=== PATIENT | female | born 1965 | race Caucasian/White ===

== ENCOUNTER 2017-06-13 03:43 | Emergency (ER) | payer BC ==
[~2017-06-13] VITALS: Ht 170.2 cm; Wt 78.0 kg
[2017-06-13 03:44] VITALS: BP 133/78; PULSE 84; RESP 20; TEMP 98.7; O2SAT 98
[2017-06-13] MEDS ORDERED: SODIUM CHLORIDE 0.9% FLUSH 10 ML FLUSH IVF PRN (04:15)
[2017-06-13] MEDS ORDERED: traMADol HCL 50 MG TAB PO ONE ×2 (04:15→06:00)
[2017-06-13 04:42] VITALS: O2SAT 97
[2017-06-13] MEDS ORDERED: TOPA50TA7 PO (04:43)
[2017-06-13] MEDS ORDERED: HYDR-3366 PO (04:47)
[2017-06-13] MEDS ORDERED: DULO20 PO (04:47)
[2017-06-13] MEDS ORDERED: CELE50CA PO (04:47)
[2017-06-13] MEDS ORDERED: CYCL7.5T33 PO (04:47)
[2017-06-13] MEDS ORDERED: SLEEP MEDICATION (04:47)
[2017-06-13 04:48] LABS: HEMATOCRIT 38.5 % (35.0-46.0); HEMOGLOBIN 13.3 GM/DL (11.6-15.3); MEAN CELL VOLUME 95.7 FL (80.0-100.0); MEAN CORPUSCULAR HEMOGLOBIN 33.1 PG (27.0-34.0); MEAN CORPUSCULAR HGB CONC 34.5 % (32.0-36.0); MEAN PLATELET VOLUME 9.2 FL (7.0-11.0); PLATELET COUNT 212 TH/MM3 (150-450); RED BLOOD COUNT 4.02 MIL/MM3 (4.00-5.30); RED CELL DISTRIBUTION WIDTH 12.6 % (11.6-17.2); WHITE BLOOD COUNT 6.9 TH/MM3 (4.0-11.0)
[2017-06-13] MEDS ORDERED: otc cough med (04:49)
[2017-06-13] MEDS ORDERED: IBUP1TAB7 PO (04:49)
[2017-06-13 05:03] LABS: D-DIMER 0.5 MG/L FEU (0.00-0.50); PROTHROMBIN TIME - PATIENT 9.8 SEC (9.8-11.6)
[2017-06-13 05:05] LABS: ALBUMIN 3.8 GM/DL (3.4-5.0); AST (GOT) 26 U/L (15-37); BICARBONATE 21.1 MEQ/L (21.0-32.0); BLOOD UREA NITROGEN 10 MG/DL (7-18); CALCIUM 8.3 MG/DL (8.5-10.1); CHLORIDE 105 MEQ/L (98-107); CREATININE 1.03 MG/DL (0.50-1.00); GLOMERULAR FILTRATION RATE 56 ML/MIN (>89); GLUCOSE,RANDOM 108 MG/DL (74-106); MAGNESIUM 2.1 MG/DL (1.5-2.5); SODIUM (NA) 134 MEQ/L (136-145)
[2017-06-13 05:06] VITALS: BP_SYST 127; BP_SYST 131; BP_DIAS 73; BP_DIAS 74; PULSE 85; O2SAT 97
[2017-06-13 05:06] LABS: ALT (GPT) 25 U/L (10-53)
[2017-06-13 05:08] VITALS: BP 131/73; PULSE 89
[2017-06-13 05:09] LABS: ALKALINE PHOSPHATASE 106 U/L (45-117); TOTAL BILIRUBIN ADULT 0.3 MG/DL (0.2-1.0); TOTAL PROTEIN 7.3 GM/DL (6.4-8.2); TROPONIN I LESS THAN 0.02 NG/ML (0.02-0.05)
--- NOTE | 2017-06-13 05:25 | RADRPT ---
EXAM DATE/TIME: 06/13/2017 04:39 [place] COMPARISON: No previous studies available for comparison. INDICATIONS : Left sided rib/chest pain. No known injury. MEDICAL HISTORY : None. SURGICAL HISTORY : None. ENCOUNTER: Initial ACUITY: 3 days PAIN SCORE: 10/10 LOCATION: Left chest FINDINGS: A single view of the chest demonstrates the lungs to be symmetrically aerated without evidence of mas s, infiltrate or effusion. The cardiomediastinal contours are unremarkable. Osseous structures are intact. CONCLUSION: The lungs are grossly clear. Ernesto Burnett MD on June 13, 2017 at 5:22 Board Certified Radiologist. This report was verified electronically.
[2017-06-13 05:26] LABS: BANDS 5 % (0-6); LYMPHOCYTES 5 % (9-44); MONOCYTES 10 % (0-8); NEUTROPHIL # MANUAL DIFF 5.8 TH/MM3 (1.8-7.7); POLYS (SEG NEUTROPHILS) 79 % (16-70)
[2017-06-13] MEDS ORDERED: DIAZEPAM 5 MG TAB PO ONE ×2 (05:45→06:00)
[2017-06-13] MEDS ORDERED: RESP: ALBUTEROL 2.5 MG/IPRATROPIUM 0.5 MG NEB (SCH) NEB ONE (06:00)
[2017-06-13 06:17] VITALS: BP 154/95; PULSE 88; O2SAT 97
[2017-06-13] MEDS ORDERED: VENTAER INH (06:33)
[2017-06-13] MEDS ORDERED: DIAZ5 PO (06:33)
[2017-06-13] MEDS ORDERED: TRAM50 PO (06:33)
--- NOTE | 2017-06-13 06:34 | PD ---
HPI . Left chest wall pain Chief Complaint: Cold / Flu Symptoms Time Seen by Provider: 04:13 Travel History International Travel<30 days: No Contact w/Intl Traveler<30days: No Traveled to known affect area: No History of Present Illness HPI 51-year-old female complains of having cough cold type symptoms and left lateral lower chest wall pain sharp, worse with deep breath and movement, patient notes severe pain today secondary to increased coughing. Patient states she has a rattle in her chest, however denies any cough production or quantified fever. Patient has had extensive recent travel history driving to [place] and [facility]. No increased leg pain or leg swelling. [facility] Past Medical History Narrative Medical Past medical history reviewed Hypertension: Yes Tetanus Vaccination: Never Vaccinated Influenza Vaccination: No ?: Not Menopausal: Yes Tubal Ligation: Yes Past Surgical History Oral Surgery: Yes (x3) Social History Alcohol Use: Yes (occ) Tobacco Use: No Substance Use: No Allergies-Medications (Allergen,Severity, Reaction): Coded Allergies: sumatriptan (Verified Allergy, Severe, Anemia, 06/13/17) Reported Meds & Prescriptions Reported Meds & Active Scripts Active Reported [otc cough med] Ibuprofen 800 Mg Tab 800 Mg PO Q8H PRN [place] (Hydrocodone-Acetaminophen) 10-325 Mg Tab 1 Tab PO Q8HR PRN [sleep medication] Cymbalta DR (Duloxetine HCl) 20 Mg Capdr Mg PO DAILY Flexeril (Cyclobenzaprine HCl) 7.5 Mg Tab Mg PO TID Celebrex (Celecoxib) 50 Mg Cap Mg PO BID Topamax (Topiramate) 50 Mg Tab 50 Mg PO BID Narrative Medication Allergies and medications reviewed Review of Systems Except as stated in HPI: all other systems reviewed are Neg General / Constitutional: No: Fever Eyes: No: Visual changes HENT: No: Headaches Cardiovascular: Positive: Chest Pain or Discomfort Respiratory: Positive: Cough, Shortness of Breath, Pleuritic Pain, No: Orthopnea, Hemoptysis, Stridor, Night Sweats Gastrointestinal: No: Abdominal Pain Genitourinary: No: Dysuria Musculoskeletal: No: Pain Skin: No Rash Neurologic: No: Weakness Psychiatric: No: Depression Endocrine: No: Polydipsia Hematologic/Lymphatic: No: Easy Bruising Physical Exam Narrative GENERAL: Awake alert oriented 3 no acute distress. Patient appears uncomfortable obvious splinting respirations. Oxygen saturation 90% on room air afebrile SKIN: Warm and dry. Color is normal no diaphoresis cyanosis or pallor HEAD: Atraumatic. Normocephalic. EYES: Pupils equal and round. No scleral icterus. No injection or drainage. ENT: No nasal bleeding or discharge. Mucous membranes pink and moist. NECK: Trachea midline. No JVD. Supple full range of motion CARDIOVASCULAR: Regular rate and rhythm. S1-S2 no murmurs or gallops RESPIRATORY: No accessory muscle use. Clear to auscultation. Breath sounds equal bilaterally. Obvious splinting left-sided chest wall pain, no step-off no lesions noted GASTROINTESTINAL: Abdomen soft, non-tender, nondistended. Hepatic and splenic margins not palpable. MUSCULOSKELETAL: Extremities without clubbing, cyanosis, or edema. No obvious deformities. NEUROLOGICAL: Awake and alert. No obvious cranial nerve deficits. Motor grossly within normal limits. Five out of 5 muscle strength in the arms and legs. Normal speech. PSYCHIATRIC: Appropriate mood and affect; insight and judgment normal. Data Data Last Documented VS Vital Signs Date Time Temp Pulse Resp B/P (MAP) Pulse Ox O2 Delivery O2 Flow Rate FiO2 06/13/17 06:17 88 154/95 (114) 97 Room Air 06/13/17 03:44 98.7 20 Orders Orders Electrocardiogram (06/13/17 04:15) B-Type Natriuretic Peptide (06/13/17 04:15) Ckmb (Isoenzyme) Profile (06/13/17 04:15) Complete Blood Count With Diff (06/13/17 04:15) Comprehensive Metabolic Panel (06/13/17 04:15) D-Dimer (06/13/17 04:15) Magnesium (Mg) (06/13/17 04:15) Prothrombin Time / Inr (Pt) (06/13/17 04:15) Act Partial Throm Time (Ptt) (06/13/17 04:15) Troponin I (06/13/17 04:15) Chest, Single Ap (06/13/17 04:15) Ecg Monitoring (06/13/17 04:15) Bilateral Bp Monitoring (06/13/17 04:15) Iv Access Insert/Monitor (06/13/17 04:15) Oximetry (06/13/17 04:15) Oxygen Administration (06/13/17 04:15) Sodium Chloride 0.9% Flush (Ns Flush) (06/13/17 04:15) Tramadol (Ultram) (06/13/17 04:15) Diazepam (Valium) (06/13/17 05:45) Albuterol-Ipratropium Neb (Duoneb Neb) (06/13/17 06:00) Tramadol (Ultram) (06/13/17 06:00) Diazepam (Valium) (06/13/17 06:00) Labs Laboratory Tests Test 06/13/17 04:36 White Blood Count 6.9 TH/MM3 Red Blood Count 4.02 MIL/MM3 Hemoglobin 13.3 GM/DL Hematocrit 38.5 % Mean Corpuscular Volume 95.7 FL Mean Corpuscular Hemoglobin 33.1 PG Mean Corpuscular Hemoglobin Concent 34.5 % Red Cell Distribution Width 12.6 % Platelet Count 212 TH/MM3 Mean Platelet Volume 9.2 FL CBC Comment AUTO DIFF Differential Total Cells Counted 100 Neutrophils % (Manual) 79 % Band Neutrophils % 5 % Lymphocytes % 5 % Monocytes % 10 % Eosinophils % 1 % Neutrophils # (Manual) 5.8 TH/MM3 Differential Comment FINAL DIFF MANUAL Platelet Estimate NORMAL Platelet Morphology Comment NORMAL Red Cell Morphology Comment NORMAL Prothrombin Time 9.8 SEC Prothromb Time International Ratio 1.0 RATIO Activated Partial Thromboplast Time 28.5 SEC D-Dimer Quantitative (PE/DVT) 0.50 MG/L FEU Blood Urea Nitrogen 10 MG/DL Creatinine 1.03 MG/DL Random Glucose 108 MG/DL Total Protein 7.3 GM/DL Albumin 3.8 GM/DL Calcium Level 8.3 MG/DL Magnesium Level 2.1 MG/DL Alkaline Phosphatase 106 U/L Aspartate Amino Transf (AST/SGOT) 26 U/L Alanine Aminotransferase (ALT/SGPT) 25 U/L Total Bilirubin 0.3 MG/DL Sodium Level 134 MEQ/L Potassium Level 3.6 MEQ/L Chloride Level 105 MEQ/L Carbon Dioxide Level 21.1 MEQ/L Anion Gap 8 MEQ/L Estimat Glomerular Filtration Rate 56 ML/MIN Total Creatine Kinase 46 U/L Troponin I LESS THAN 0.02 NG/ML B-Type Natriuretic Peptide 35 PG/ML MDM Medical Decision Making Medical Screen Exam Complete: Yes Emergency Medical Condition: Yes Medical Record Reviewed: Yes Differential Diagnosis Pleuritis, pulmonary embolus, pneumonia, chest wall injury, intercostal muscle strain, spontaneous rib fracture Narrative Course All laboratory examinations reviewed, patient's cardiac enzymes normal. D- dimer 0.5, normal Chest x-ray read as normal by radiology. Possible small platelike atelectasis left base consistent with patient's history of pain and splinting recently 2 respirations Patient was administered Ultram and Valium by mouth with significant improvement in her pain levels. Secondary to patient's history of cough and difficulty taking a deep breath, patient was given albuterol Atrovent treatment to see if it would help her effort of respiration. Patient noted significant improvement with same. Diagnosis Primary Impression: Left-sided chest wall pain Patient Instructions: Chest Wall Pain (GEN), General Instructions Additional Instructions: Ultram 50 mg 8 hours for pain. Valium 5 mg every 8 hours for muscle relaxation. Albuterol inhaler 2 puffs every 4-6 hours as needed for shortness of breath wheezing and cough. Follow-up with your physician. Recommend repeat chest x-ray in one week. Return promptly for worsening Scripts Albuterol 18 GM Inh (Ventolin Hfa 18 GM Inh) 90 Mcg/Act Aer 2 PUFF INH Q4-6H Y for SHORTNESS OF BREATH, #1 INHALER 0 Refills Prov: Jean Blanco MD 06/13/17 Diazepam (Valium) 5 Mg Tab 5 MG PO TID Y for MUSCLE SPASM, #20 TAB 0 Refills Prov: Jean Blanco MD 06/13/17 Tramadol (Ultram) 50 Mg Tab 50 MG PO Q8H Y for PAIN, #20 TAB 0 Refills Prov: Jean Blanco MD 06/13/17 Disposition: 01 DISCHARGE HOME Condition: Stable Jean Blanco MD Jun 13, 2017 06:34
--- NOTE | 2017-06-13 14:21 | EKG ---
Date Performed: 06/13/2017 Time Performed: 05:04:51 PTAGE: 51 years EKG: Sinus rhythm POSSIBLE LEFT ATRIAL ENLARGEMENT LOW QRS VOLTAGE IN PRECORDIAL LEADS BORDERLINE ECG NO PREVIOUS TRACING DOCTOR: Mane Merino Interpretating Date/Time 06/13/2017 14:20:09
== END 2017-06-13 06:50 | disposition home or self-care (01) ==
LOC: NEPE 03:43
DX: R07.89 Other chest pain (principal); R05 Cough; R06.02 Shortness of breath; Z79.899 Other long term (current) drug therapy
CPT/HCPCS: 71045; 80053; 82550; 83735; 83880; 84484; 85007; 85027; 85379; 85610; 85730; 93005; 94664